=== PATIENT | female | born 1990 | race Caucasian/White ===

== ENCOUNTER 2016-11-12 06:15 | Inpatient (IN) | payer MEDICAID ==
[~2016-11-12 06:15] MED LIST: MOTRIN-DPS800 MG PO; NIPPLECREAM TP; OMEGA-3 DPS1000 MG PO; PRENATAL VIT1 TAB PO; TYLENOL #3 DPS1 TAB PO
== END 2016-11-13 16:15 | disposition home or self-care (01) | DRG 775 ==
DX: O36.5930 Maternal care for other known or suspected poor fetal growth, third trimester, not applicable or unspecified (principal); O69.1XX0 Labor and delivery complicated by cord around neck, with compression, not applicable or unspecified; Z3A.38 38 weeks gestation of pregnancy; Z37.0 Single live birth